=== PATIENT | female | born 2000 | race Caucasian/White ===

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

== ENCOUNTER 2024-09-27 12:11 | Emergency (ER) | payer BC, OTHER ==
[2024-09-27 12:18] VITALS: TEMP 98.6
--- NOTE | 2024-09-27 13:01 | ED ---
General Adult HPI - General Chief complaint: Dizziness Stated complaint: Back pain,nausea Time Seen by Provider: 09/27/24 12:58 Source: patient, RN notes reviewed Mode of arrival: ambulatory Limitations: no limitations - History of Present Illness Initial comments: 24-year-old female presenting with right flank pain x 3 days with dysuria. Describes the pain as a constant, sharp pain that is worse with talking, coughing, and movement. She has never had this pain before. Patient reports she also started her menstrual cycle 3 days ago which has been heavier than normal. Denies abdominal pain, fever, nausea, vomiting. Denies history of kidney stones. - Related Data Home Medications Medication Instructions Recorded Confirmed Pnv No.95/Ferrous Fum/Folic AC 1 each PO DAILY 11/20/21 11/21/21 [ Multivitamin Tablet] Previous Rx's Medication Instructions Recorded Ibuprofen [Motrin] 600 mg PO Q6H PRN #30 tab 11/24/21 oxyCODONE HCL [OxyIR] 5 mg PO Q4HR PRN #18 tab 11/24/21 Cephalexin [Keflex] 500 mg PO Q6HR 7 Days #28 cap 09/27/24 Ketorolac [Toradol] 10 mg PO Q8HR #15 tab 09/27/24 Allergies Allergy/AdvReac Type Severity Reaction Status Date / Time No Known Allergies Allergy Verified 09/27/24 12:18 Review of Systems ROS Statement: Those systems with pertinent positive or pertinent negative responses have been documented in the HPI. ROS Other: All systems not noted in ROS Statement are negative. Past Medical History Past Medical History: No Reported History History of Any Multi-Drug Resistant Organisms: None Reported Past Surgical History: No Surgical Hx Reported Past Anesthesia/Blood Transfusion Reactions: No Reported Reaction Past Psychological History: No Psychological Hx Reported Smoking Status: Never smoker Past Alcohol Use History: None Reported Past Drug Use History: Marijuana - Past Family History Father Additional Family Medical History / Comment(s): Glaucoma Mother Additional Family Medical History / Comment(s): Penicillin allergy reported Brother(s) Additional Family Medical History / Comment(s): Epilepsy General Exam Limitations: no limitations General appearance: alert, in no apparent distress Head exam: Present: atraumatic, normocephalic, normal inspection Eye exam: Present: normal appearance, PERRL, EOMI. Absent: scleral icterus, conjunctival injection, periorbital swelling GI/Abdominal exam: Present: soft, normal bowel sounds. Absent: distended, tenderness, guarding, rebound, rigid Back exam: Present: normal inspection. Absent: CVA tenderness (R), CVA tenderness (L) Neurological exam: Present: alert, oriented X3 Psychiatric exam: Present: normal affect, normal mood Skin exam: Present: warm, dry, intact, normal color. Absent: rash Course Vital Signs 09/27/24 09/27/24 09/27/24 12:15 16:00 17:02 Temperature 98.6 F Pulse Rate 129 H 77 88 Respiratory 16 18 18 Rate Blood Pressure 92/52 99/66 94/67 O2 Sat by Pulse 98 100 100 Oximetry Medical Decision Making - Medical Decision Making Was pt. sent in by a medical professional or institution (MARA Anthony, FRAME OPERATOR, urgent care, hospital, or shelter...) When possible be specific @ -No Did you speak to anyone other than the patient for history (EMS, parent, family, police, friend...)? What history was obtained from this source @ -No Did you review nursing and triage notes (agree or disagree)? Why? @ -I reviewed and agree with nursing and triage notes Were old charts reviewed (outside hosp., previous admission, EMS record, old EKG, old radiological studies, urgent care reports/EKG's, shelter records)? Report findings @ -No old charts were reviewed Differential Diagnosis (chest pain, altered mental status, abdominal pain women, abdominal pain men, vaginal bleeding, weakness, fever, dyspnea, syncope, headache, dizziness, GI bleed, back pain, seizure, CVA, palpatations, mental health, musculoskeletal)? @ -Differential Abdominal Pain Women: Appendicitis, Cholecystitis, diverticulosis, ischemic bowel, pancreatitis, hepatitis, UTI, gastroenteritis, AAA, incarcerated hernia, bowel obstruction, constipation, inflammatory bowel, hepatitis, peptic ulcer disease, splenic infarction, perforated viscus, vulvitis, ovarian torsion, PID, kidney stone, placenta abruption, this is not meant to be an all-inclusive list EKG interpreted by me (3pts min.). @ -None X-rays interpreted by me (1pt min.). @ -None done CT interpreted by me (1pt min.). @ -CT abdomen pelvis reveals no acute abnormality, nonobstructing 6 mm calculus in the mid/superior right kidney U/S interpreted by me (1pt. min.). @ -Ultrasound pelvis reveals no acute process, probable involuting left hemorrhagic follicle, appropriate arterial and venous spectral waveforms to ovaries What testing was considered but not performed or refused? (CT, X-rays, U/S, labs)? Why? @ -None What meds were considered but not given or refused? Why? @ -None Did you discuss the management of the patient with other professionals (professionals i.e. , PA, FRAME OPERATOR, lab, RT, psych nurse, social services coordinator, k9 handler, teacher, state wildlife officer, shelter case manager)? Give summary @ -No Was smoking cessation discussed for >3mins.? @ -No Was critical care preformed (if so, how long)? @ -No Were there social determinants of health that impacted care today? How? (Homelessness, low income, unemployed, alcoholism, drug addiction, transportation, low edu. Level, literacy, decrease access to med. care, care home, rehab)? @ -No Was there de-escalation of care discussed even if they declined (Discuss DNR or withdrawal of care, Hospice)? DNR status @ -No What co-morbidities impacted this encounter? (DM, HTN, Smoking, COPD, CAD, Cancer, CVA, ARF, Chemo, Hep., AIDS, mental health diagnosis, sleep apnea, morbid obesity)? @ -None Was patient admitted / discharged? Hospital course, mention meds given and route, prescriptions, significant lab abnormalities, going to OR and other pertinent info. @ -Discharge. This is a 24-year-old female presenting with right flank pain x 3 days with associated dysuria. Patient is initially tachycardic at 129 bpm. Patient is afebrile with no CVA tenderness. Abdomen is soft and nontender. Patient was provided with IV fluids, analgesics, and antiemetics. Lab work including CBC, CMP, lactic acid unremarkable. White blood cell count stable at 8. Urinalysis remarkable for positive nitrites, 102 red blood cells, 67 white blood cells. Pelvic ultrasound reveals no acute process. It is unclear at this time if hematuria is caused by menstrual period or possibly nephrolithiasis, therefore CT scan abdomen pelvis performed which was negative for acute process. Heart rate reduces to 88 bpm upon recheck. Upon reevaluation, patient reports symptoms have improved. Discussed diagnosis of right pyelonephritis. Patient was given 1 dose IV Rocephin and prescribed Keflex 4 times daily for 7 days. Strict return precautions discussed with patient as well as follow-up with PCP in 1 to 3 days for reevaluation. Patient is agreeable to plan. Case was discussed with my ED attending Dr. Morales. Patient discharged in stable condition. @ -No Drug Therapy requiring intensive monitoring for toxicity (Heparin, Nitro, Insulin, Cardizem)? @ -No Were any procedures done? @ -No Diagnosis/symptom? @ -Right pyelonephritis Acute, or Chronic, or Acute on Chronic? @ -Acute Uncomplicated (without systemic symptoms) or Complicated (systemic symptoms)? @ -Uncomplicated Side effects of treatment? @ -No Exacerbation, Progression, or Severe Exacerbation? @ -No Poses a threat to life or bodily function? How? (Chest pain, [place], [place], pneumonia, PE, COPD, DKA, ARF, appy, cholecystitis, CVA, Diverticulitis, Homicidal, Suicidal, threat to staff... and all critical care pts) @ -Unlikely at this time - Lab Data Result diagrams: 09/27/24 13:02 09/27/24 13:02 Lab Results 09/27/24 09/27/24 09/27/24 Range/Units 13:02 13:02 13:02 WBC 8.0 (3.8-10.6) k/uL RBC 4.18 (3.80-5.40) m/uL Hgb 12.2 (11.4-16.0) gm/dL Hct 37.6 (34.0-46.0) % MCV 89.8 (80.0-100.0) fL MCH 29.3 (25.0-35.0) pg MCHC 32.6 (31.0-37.0) g/dL RDW 14.0 (11.5-15.5) % Plt Count 302 (150-450) k/uL MPV 8.2 Neutrophils % 74 % Lymphocytes % 15 % Monocytes % 7 % Eosinophils % 1 % Basophils % 0 % Neutrophils # 5.9 (1.3-7.7) k/uL Lymphocytes # 1.2 (1.0-4.8) k/uL Monocytes # 0.6 (0-1.0) k/uL Eosinophils # 0.1 (0-0.7) k/uL Basophils # 0.0 (0-0.2) k/uL Sodium 138 (137-145) mmol/L Potassium 4.8 (3.5-5.1) mmol/L Chloride 103 (98-107) mmol/L Carbon Dioxide 25 (22-30) mmol/L Anion Gap 10 mmol/L BUN 8 (7-17) mg/dL Creatinine 0.48 L (0.52-1.04) mg/dL Est GFR (CKD-EPI)AfAm >90 (>60 ml/min/1.73 sqM) Est GFR (CKD-EPI)NonAf >90 (>60 ml/min/1.73 sqM) Glucose 110 H (74-99) mg/dL Plasma Lactic Acid Sandeep 1.3 (0.7-2.0) mmol/L Calcium 9.2 (8.4-10.2) mg/dL Total Bilirubin 0.5 (0.2-1.3) mg/dL AST 22 (14-36) U/L ALT 16 (4-34) U/L Alkaline Phosphatase 47 (38-126) U/L Total Protein 7.6 (6.3-8.2) g/dL Albumin 4.1 (3.5-5.0) g/dL Urine Color Urine Appearance (Clear) Urine pH (5.0-8.0) Ur Specific [place] (1.001-1.035) Urine Protein (Negative) Urine Glucose (UA) (Negative) Urine Ketones (Negative) Urine Blood (Negative) Urine Nitrite (Negative) Urine Bilirubin (Negative) Urine Urobilinogen (<2.0) mg/dL Ur Leukocyte Esterase (Negative) Urine RBC (0-5) /hpf Urine WBC (0-5) /hpf Urine WBC Clumps (None) /hpf Ur Squamous Epith Cells (0-4) /hpf Urine Bacteria (None) /hpf Urine Mucus (None) /hpf Urine HCG, Qual (Not Detectd) 09/27/24 09/27/24 Range/Units 13:27 13:27 WBC (3.8-10.6) k/uL RBC (3.80-5.40) m/uL Hgb (11.4-16.0) gm/dL Hct (34.0-46.0) % MCV (80.0-100.0) fL MCH (25.0-35.0) pg MCHC (31.0-37.0) g/dL RDW (11.5-15.5) % Plt Count (150-450) k/uL MPV Neutrophils % % Lymphocytes % % Monocytes % % Eosinophils % % Basophils % % Neutrophils # (1.3-7.7) k/uL Lymphocytes # (1.0-4.8) k/uL Monocytes # (0-1.0) k/uL Eosinophils # (0-0.7) k/uL Basophils # (0-0.2) k/uL Sodium (137-145) mmol/L Potassium (3.5-5.1) mmol/L Chloride (98-107) mmol/L Carbon Dioxide (22-30) mmol/L Anion Gap mmol/L BUN (7-17) mg/dL Creatinine (0.52-1.04) mg/dL Est GFR (CKD-EPI)AfAm (>60 ml/min/1.73 sqM) Est GFR (CKD-EPI)NonAf (>60 ml/min/1.73 sqM) Glucose (74-99) mg/dL Plasma Lactic Acid Sandeep (0.7-2.0) mmol/L Calcium (8.4-10.2) mg/dL Total Bilirubin (0.2-1.3) mg/dL AST (14-36) U/L ALT (4-34) U/L Alkaline Phosphatase (38-126) U/L Total Protein (6.3-8.2) g/dL Albumin (3.5-5.0) g/dL Urine Color Yellow Urine Appearance Cloudy H (Clear) Urine pH 8.0 (5.0-8.0) Ur Specific [place] 1.020 (1.001-1.035) Urine Protein 1+ H (Negative) Urine Glucose (UA) Negative (Negative) Urine Ketones Negative (Negative) Urine Blood Large H (Negative) Urine Nitrite Positive H (Negative) Urine Bilirubin Negative (Negative) Urine Urobilinogen 4.0 (<2.0) mg/dL Ur Leukocyte Esterase Large H (Negative) Urine RBC 102 H (0-5) /hpf Urine WBC 67 H (0-5) /hpf Urine WBC Clumps Few H (None) /hpf Ur Squamous Epith Cells 1 (0-4) /hpf Urine Bacteria Many H (None) /hpf Urine Mucus Few H (None) /hpf Urine HCG, Qual Not Detected (Not Detectd) Disposition Clinical Impression: Pyelonephritis of right kidney Disposition: HOME SELF-CARE Condition: Stable Instructions (If sedation given, give patient instructions): Kidney Infection (ED) Additional Instructions: Take Keflex 4 times daily as discussed. Hydrate aggressively. Follow-up with PCP in 3 to 5 days for reevaluation. Please return to the Emergency Department if symptoms worsen or any other concerns. Prescriptions: Cephalexin [Keflex] 500 mg PO Q6HR 7 Days #28 cap Ketorolac [Toradol] 10 mg PO Q8HR #15 tab Is patient prescribed a controlled substance at d/c from ED?: No Referrals: None,Stated [Primary Care Provider] - 1-2 days Time of Disposition: 16:48
[2024-09-27] MEDS: SODIUM CHLORIDE 0.9% 1,000 ML IV STA (13:09)
[2024-09-27 13:17] LABS: Basophils % (A) 0 %; Eosinophils # (A) 0.1 k/uL (0-0.7); Eosinophils % (A) 1 %; HCT 37.6 % (34.0-46.0); HGB 12.2 gm/dL (11.4-16.0); Lymphocytes # (A) 1.2 k/uL (1.0-4.8); Lymphocytes % (A) 15 %; MCH 29.3 pg (25.0-35.0); MCHC 32.6 g/dL (31.0-37.0); MCV 89.8 fL (80.0-100.0); Mean Platelet Volume 8.2; Monocytes # (A) 0.6 k/uL (0-1.0); Monocytes % (A) 7 %; Neutrophils # (A) 5.9 k/uL (1.3-7.7); Neutrophils % (A) 74 %; Platelet Count 302 k/uL (150-450); RBC 4.18 m/uL (3.80-5.40)
[2024-09-27 13:26] LABS: ALT 16 U/L (4-34); African American GFR (CKD) >90 (>60 ml/min/1.73 sqM); Albumin 4.1 g/dL (3.5-5.0); Anion Gap 10 mmol/L; Blood Urea Nitrogen 8 mg/dL (7-17); Calcium 9.2 mg/dL (8.4-10.2); Carbon Dioxide 25 mmol/L (22-30); Chloride 103 mmol/L (98-107); Glucose 110 mg/dL (74-99); Non-African American GFR(CKD) >90 (>60 ml/min/1.73 sqM); Sodium 138 mmol/L (137-145); Total Bilirubin 0.5 mg/dL (0.2-1.3); Total Protein 7.6 g/dL (6.3-8.2)
[2024-09-27 13:33] LABS: AST 22 U/L (14-36); Alkaline Phosphatase 47 U/L (38-126); Potassium 4.8 mmol/L (3.5-5.1)
[2024-09-27] MEDS: KETOROLAC 15 MG/ML 1 ML VIAL IVP STA ×2 (14:12→16:59)
[2024-09-27] MEDS: ONDANSETRON 4 MG/2 ML VIAL IVP STA (14:13)
[2024-09-27 14:21] LABS: Appearance,Urine Cloudy (Clear); Bacteria,Urine Many /hpf; Bilirubin,Urine Negative (Negative); Blood,Urine Large (Negative); Color,Urine Yellow; Glucose,Urine (UA) Negative (Negative); Ketones,Urine Negative (Negative); Leukocyte Esterase,Urine Large (Negative); Mucus,Urine Few /hpf; Nitrite,Urine Positive (Negative); Protein,Urine 1+ (Negative); RBC,Urine 102 /hpf (0-5); Squamous Epithelial Cell,Urine 1 /hpf (0-4); WBC,Urine 67 /hpf (0-5)
--- NOTE | 2024-09-27 14:32 | US ---
EXAMINATION TYPE: US transvaginal DATE OF EXAM: 09/27/2024 COMPARISON: NONE CLINICAL INDICATION: Female, 24 years old with history of right pelvic pain; RLQ pain TECHNIQUE: Transvaginal (TV). Transvaginal grayscale sonographic images of the pelvis were acquired. Doppler imaging: Color Doppler Images were obtained. Spectral doppler images were obtained. FINDINGS: Date of LMP: 4 days ago EXAM MEASUREMENTS: Uterus: 9.4 x 3.9 x 4.7 cm Endometrial Stripe: 0.5 cm Right Ovary: 2.7 x 2.1 x 2.9 cm Left Ovary: 3.4 x 2.6 x 2.7 cm 1. Uterus: Anteverted C-sec scar visualized 2. Endometrium: wnl 3. Right Ovary: wnl 4. Left Ovary: Probable resolving hemorrhagic follicle= 1.8 x 1.4 x 1.6 cm Spectral, color and waveform doppler imaging shows good arterial and venous flow within the ovaries ; there is no evidence for ovarian torsion. 5. Bilateral Adnexa: wnl 6. Posterior cul-de-sac: wnl IMPRESSION: 1. No evidence for acute process. 2. Probable involuting left hemorrhagic follicle. 3. Appropriate arterial and venous spectral waveforms to the ovaries. [facility], , 09/27/2024 2:30 PM
[2024-09-27 16:00] VITALS: RESP 18
--- NOTE | 2024-09-27 16:21 | CT ---
EXAMINATION TYPE: CT abdomen pelvis wo con DATE OF EXAM: 09/27/2024 4:15 PM COMPARISON: None available. CLINICAL INDICATION: Female, 24 years old with history of right flank pain; Rt side flank pain. TECHNIQUE: Axial CT abdomen pelvis wo con;Sagittal and coronal reformats were created on a separate workstation. Oral contrast used: without Oral Contrast (none if empty) CT DLP: 510.8 mGycm, Automated exposure control for dose reduction was used. FINDINGS: LOWER CHEST: Unremarkable ABDOMEN Liver unremarkable. Cholelithiasis. Spleen normal size and morphology. No suspicious adrenal gland no dule. No abnormal biliary duct dilatation. Pancreas unremarkable. 6 monitor calculus in the mid/super ior right kidney. Likely simple cyst in the superior right kidney. No evidence of hydronephrosis bila terally. Imaging through the gastric intestinal tract demonstrates a few scattered colonic diverticula without acute diverticulitis. No evidence of bowel obstruction. Stomach underdistended bowel is unremarkable . Abdominal aorta normal in caliber. No pathologic intraperitoneal or mesenteric adenopathy. No signifi cant free fluid or free air in the abdomen/pelvis. Uterus unremarkable. Urinary bladder unremarkable. No acute osseous abnormality. IMPRESSION: 1. No acute abnormality in the abdomen/pelvis. 2. Nonobstructing 6 mm calculus in the mid/superior right kidney. [facility], , 09/27/2024 4:19 PM
[2024-09-27] MEDS: cefTRIAXone IN SWFI 1,000 MG/10 ML SYRINGE IVP STA (17:01)
[2024-09-27 17:04] VITALS: BP 94/67; PULSE 88
== END 2024-09-27 17:09 | disposition home or self-care (01) ==
LOC: EC 12:11
DX: N12 Tubulo-interstitial nephritis, not specified as acute or chronic (principal)
CPT/HCPCS: 99284 ×2; 96374 ×2; 96375 ×3; 96376 ×2; 96361 ×2; 36415; 80053; 83605; 85025; 81001; 81025; 87086; 87077; 87186; 93975; 76830; 74176; J2405; J0696; J1885